=== PATIENT | female | born 1955 | race Caucasian/White ===

== ENCOUNTER → 2018-11-06 | Outpatient (CLI) | payer OTHER ==
--- NOTE | 2018-11-06 12:42 | CT ---
EXAM DESCRIPTION: Soft Tissue Neck w/wo Contrast CLINICAL HISTORY: 63 years, Female, NECK SWELLING COMPARISON: None. TECHNIQUE: CT of the neck is performed prior to and during IV administration of 100 mL of IV contrast. MPR images are created and reviewed as well. FINDINGS: 9 mm left hypoenhancing thyroid nodule. This requires no follow-up per best practice. Cervical airway normal. No pathologic adenopathy. Salivary glands normal. Pulmonary apices clear. Diffuse cervical disc disease with disc space narrowing C3-4, C4-5, C5-6, C6-7, C7-T1. IMPRESSION: Subcentimeter incidental thyroid nodule No follow-up imaging is recommended. Reference: J Am Hilario Radiol. 2015 Dec;12(2): 143-50 Diffuse cervical spondylosis This exam was performed according to our departmental dose-optimization program, which includes automated exposure control, adjustment of the mA and/or kV according to patient size and/or use of iterative reconstruction technique. Electronically signed by: Renan Booth MD 11/06/2018 12:41 PM [facility]
--- NOTE | 2018-11-06 12:51 | CT ---
EXAM DESCRIPTION: Chest w/Contrast CLINICAL HISTORY: 63 years, Female, SUPRACLAVICAL CHEST SWELLING COMPARISON: None TECHNIQUE: Thin-section axial CT images are obtained during rapid bolus administration of 100 mL of Isovue 300 IV contrast media. Reconstructed MPR images are created and reviewed as well. FINDINGS: Lungs clear. No consolidation or nodule. Heart and mediastinum normal. No chest wall abnormality. Patient has supraclavicular swelling. No mass observed. Decreased density of the liver due to fatty infiltration. There is a low-attenuation area in the inferior aspect of the right lobe of the liver the entire extent of which is not visualized. This finding measures 1.5 cm and is suspected to be a cavernous hemangioma. IMPRESSION: 1. no chest wall abnormality. 2. Incompletely visualized lesion right lobe of the liver highly likely to be benign. Ultrasound recommended for further characterization. This exam was performed according to our departmental dose-optimization program, which includes automated exposure control, adjustment of the mA and/or kV according to patient size and/or use of iterative reconstruction technique. Electronically signed by: Renan Booth MD 11/06/2018 12:49 PM [facility]
== END ==
LOC: CT 10:00
PROVIDERS: ATTEND General Practice
DX: R22.1 Localized swelling, mass and lump, neck (principal); R22.2 Localized swelling, mass and lump, trunk; E04.1 Nontoxic single thyroid nodule; M47.892 Other spondylosis, cervical region; K76.9 Liver disease, unspecified